=== PATIENT | male | born 1995 | race Asian ===

== ENCOUNTER 2021-02-02 16:15 | Emergency (ER) | payer OTHER ==
[~2021-02-02] VITALS: Ht 182.9 cm; Wt 60.8 kg
[2021-02-02 16:15] VITALS: TEMP 100
[2021-02-02 16:47] LABS: PLATELET COUNT 348 K/uL (142-355)
[2021-02-02 16:54] LABS: POTASSIUM 4.2 mmol/L (3.6-5.2); SODIUM 140 mmol/L (136-145)
[2021-02-02 18:15] VITALS: BP 121/78
== END 2021-02-02 18:15 ==
LOC: ED 16:21
PROVIDERS: Hospitalist
DX: R56.9 Unspecified convulsions (principal)
CPT/HCPCS: 36415; 80053; 80307; 80320; 81000; 82550; 83880; 84484; 85027; 85610; 85730; 93005; 96365; 99284; Q2009